=== PATIENT | female | born 1990 | race Caucasian/White ===

== ENCOUNTER 2017-12-13 08:00 | Outpatient (CLI) | payer BC | END 2017-12-13 08:01 | disposition home or self-care (01) | LOC: LAB.R 08:00 | PROVIDERS: ATTEND Registered Nurse | DX: Z01.419 Encounter for gynecological examination (general) (routine) without abnormal findings (principal) | CPT/HCPCS: 87491; 87591 ==

== ENCOUNTER 2018-09-08 19:37 | Emergency (ER) | payer SELFPAY ==
--- NOTE | 2018-09-08 23:37 | ED Physician Documentation ---
PD HPI HEADACHE - Stated complaint Stated Complaint: LOZANO/NAUSEA - Chief complaint Chief Complaint: Neuro - History obtained from History obtained from: Patient - History of Present Illness Timing - onset: How many days ago (2) Timing - duration: Days (2) Timing - details: Gradual onset Pain level now: 6 Worst headache ever?: No: Worst headache ever? Location: Left, Other (left temporal and bilateral occipital) Quality: Throbbing Associated symptoms: Nausea. No: Fever, Stiff neck, Vomiting, Eye pain, Vision changes Improved by: Nothing Worsened by: Other (position) Contributing factors: Recent illness (recovering from URI) Similar symptoms before: Has not had sx before Recently seen: Not recently seen Review of Systems Constitutional: reports: Reviewed and negative Eyes: reports: Reviewed and negative Nose: reports: Congestion Respiratory: reports: Cough GI: reports: Nausea. denies: Vomiting Neurologic: reports: Headache. denies: Generalized weakness, Focal weakness, Numbness PD PAST MEDICAL HISTORY - Past Medical History Past Medical History: Yes Cardiovascular: High cholesterol - Past Surgical History Past Surgical History: Yes HEENT: Tonsil/Adenoidectomy - Present Medications Home Medications: Ambulatory Orders Medication Instructions Recorded Confirmed Hydrocodone/Acetaminophen 1 - 2 each PO Q6H PRN #10 tablet 06/20/16 [Hydrocodon-Acetaminophen 5-325] Ibuprofen [Motrin] 800 mg PO Q8H PRN #20 tablet 06/20/16 Amox/Clav 875/125 [Augmentin] 1 each PO Q12H #14 tablet 09/09/18 Hydrocodone/Acetaminophen 1 - 2 each PO Q6H PRN #14 tablet 09/09/18 [Hydrocodon-Acetaminophen 5-325] - Allergies Allergies/Adverse Reactions: Allergies Allergy/AdvReac Type Severity Reaction Status Date / Time No Known Drug Allergies Allergy Verified 09/08/18 20:10 - Social History Does the pt smoke?: Yes Smoking Status: Current every day smoker Does the pt drink ETOH?: Yes Does the pt have substance abuse?: Yes - Immunizations Immunizations are current?: Yes - POLST Patient has POLST: No PD ED PE NORMAL - Vitals Vital signs reviewed: Yes - General General: Alert and oriented X 3, No acute distress, Well developed/nourished - HEENT HEENT: PERRL, EOMI, Moist mucous membranes - Neck Neck: Supple, no meningeal sign - Respiratory Respiratory: No respiratory distress, Clear bilaterally - Derm Derm: No rash - Neuro Neuro: Alert and oriented X 3, 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 2-12 intact, No motor deficit, No sensory deficit Results - Vitals Vitals: Oxygen O2 Source Room air - Rads (name of study) CT head Radiology: Prelim report reviewed, See rad report PD MEDICAL DECISION MAKING - ED course Complexity details: reviewed results, re-evaluated patient, considered differential, d/w patient Departure - Departure Disposition: 01 Home, Self Care Clinical Impression: Sinusitis chronic, sphenoidal Condition: Good Instructions: ED Headache Sinus, ED Sinusitis Abx Tx Prescriptions: Amox/Clav 875/125 [Augmentin] 1 each PO Q12H #14 tablet Hydrocodone/Acetaminophen [Hydrocodon-Acetaminophen 5-325] 1 - 2 each PO Q6H PRN #14 tablet PRN Reason: pain Forms: Activity restrictions Discharge Date/Time: 09/09/18 01:26
[2018-09-09] MEDS ORDERED: HYDROcod/ACETAM 5/325 MG TABLET PO STA (00:13)
--- NOTE | 2018-09-09 00:46 | CT Report ---
Reason: LOZANO Procedure Date: 09/09/2018 Accession Number: [id number] / [id number] Procedure: CT - Head W/O CPT Code: FULL RESULT: EXAM: CT HEAD EXAM DATE: 09/09/2018 12:31 AM. CLINICAL HISTORY: LOZANO. COMPARISON: None. TECHNIQUE: Multiaxial CT images were obtained from the foramen magnum to the vertex. Reformats: Sagittal and coronal. IV contrast: None. In accordance with CT protocol optimization, one or more of the following dose reduction techniques were utilized for this exam: automated exposure control, adjustment of mA and/or KV based on patient size, or use of iterative reconstructive technique. FINDINGS: Parenchyma: No intraparenchymal hemorrhage. No evidence of mass, midline shift, or CT findings of infarction. Jorge-white differentiation is distinct. Extraaxial Spaces: Normal for age. No subdural or epidural collections identified. Ventricles: Normal in size and position. Sinuses and Orbits: Extensive mucosal thickening is present in the left sphenoid sinus with suggestion of an air-fluid level. The orbits and mastoid sinuses are unremarkable. Bones: No evidence of fracture or calvarial defect. IMPRESSION: 1. No acute intracranial process. 2. Extensive mucosal thickening in the left sphenoid sinus with suggestion of an air-fluid level. Clinical correlation for acute sinusitis is recommended. RADIA
[2018-09-09] MEDS ORDERED: AMOX/CLAV 875 MG/125 MG TABLET PO STA (01:15)
[2018-09-09 01:27] VITALS: BP 125/75
== END 2018-09-09 01:26 | disposition home or self-care (01) ==
LOC: ED 19:37
DX: J32.3 Chronic sphenoidal sinusitis (principal); E78.00 Pure hypercholesterolemia, unspecified; F17.200 Nicotine dependence, unspecified, uncomplicated
CPT/HCPCS: 70450; 99283; A9270

== ENCOUNTER 2019-04-14 21:38 | Emergency (ER) | payer SELFPAY ==
--- NOTE | 2019-04-14 22:06 | ED Physician Documentation ---
History of Present Illness - Stated complaint Stated Complaint: VOMITING - Chief complaint Chief Complaint: Cardiac - Additonal information Additional information: This is a 28-year-old female who denies past medical history who presents with epigastric pain after dinner tonight. She ate a meal which was zucchini with cheese and turkey, and then she immediately developed some pain in her epigastrium/RUQ radiating up to her chest. She had nausea, multiple episodes of vomiting as well. She denies any lower abdominal pain, no dysuria, no fever. She has a history of high cholesterol, she also said she has a family history of coronary artery disease. She denies shortness of breath. She denies any history of abdominal surgeries. Review of Systems Constitutional: denies: Fever Cardiac: reports: Chest pain / pressure GI: reports: Abdominal Pain, Nausea, Vomiting : denies: Dysuria Neurologic: denies: Generalized weakness PD PAST MEDICAL HISTORY - Past Medical History Cardiovascular: High cholesterol - Past Surgical History Past Surgical History: Yes HEENT: Tonsil/Adenoidectomy - Present Medications Home Medications: Ambulatory Orders Medication Instructions Recorded Confirmed Hydrocodone/Acetaminophen 1 - 2 each PO Q6H PRN #10 tablet 06/20/16 [Hydrocodon-Acetaminophen 5-325] Ibuprofen [Motrin] 800 mg PO Q8H PRN #20 tablet 06/20/16 Amox/Clav 875/125 [Augmentin] 1 each PO Q12H #14 tablet 09/09/18 Hydrocodone/Acetaminophen 1 - 2 each PO Q6H PRN #14 tablet 09/09/18 [Hydrocodon-Acetaminophen 5-325] Ondansetron Odt [Zofran] 4 mg TL Q6H PRN #10 tablet 04/15/19 - Allergies Allergies/Adverse Reactions: Allergies Allergy/AdvReac Type Severity Reaction Status Date / Time No Known Drug Allergies Allergy Verified 04/14/19 21:48 - Social History Does the pt smoke?: Yes Smoking Status: Current every day smoker Does the pt drink ETOH?: Yes Does the pt have substance abuse?: Yes - Immunizations Immunizations are current?: Yes - POLST Patient has POLST: No PD ED PE NORMAL - Vitals Vital signs reviewed: Yes - General General: Alert and oriented X 3, No acute distress - HEENT HEENT: PERRL - Neck Neck: Supple, no meningeal sign - Cardiac Cardiac: RRR, No murmur - Respiratory Respiratory: Clear bilaterally - Abdomen Abdomen: Soft, Other (Tender to palpation in the epigastrium and RUQ. Otherwise non-tender.) - Derm Derm: Warm and dry - Extremities Extremities: No deformity - Neuro Neuro: Alert and oriented X 3 - Psych Psych: Normal mood, Normal affect Results - Vitals Vitals: Vital Signs - 24 hr 04/14/19 04/14/19 04/14/19 21:46 21:50 23:13 Temperature 36.1 C L 36.5 C Heart Rate 80 67 49 L Respiratory 22 16 14 Rate Blood Pressure 124/79 137/87 H 116/72 O2 Saturation 100 100 99 Oxygen O2 Source Room air - EKG (time done) 21:53 Other comments: Other comments (Rate 56, rhythm sinus bradycardia, No ST segment changes. No abnormal T wave inversions. Intervals within normal limits.) - Labs Labs: Laboratory Tests 04/14/19 04/14/19 04/14/19 22:24 22:24 22:24 WBC 9.0 RBC 4.50 Hgb 13.5 Hct 40.0 MCV 88.9 MCH 30.0 MCHC 33.8 RDW 13.2 Plt Count 249 MPV 10.5 Neut # (Auto) 4.1 Lymph # (Auto) 3.9 H Whitman # (Auto) 0.7 Eos # (Auto) 0.3 Baso # (Auto) 0.1 Absolute Nucleated RBC 0.00 Nucleated RBC % 0.0 Sodium 138 Potassium 3.2 L Chloride 103 Carbon Dioxide 23 Anion Gap 12.0 BUN 17 Creatinine 0.9 Estimated GFR (MDRD) 75 L Glucose 118 H Calcium 9.7 Total Bilirubin 0.8 AST 37 ALT 24 Alkaline Phosphatase 47 Total Protein 7.6 Albumin 4.7 Globulin 2.9 Albumin/Globulin Ratio 1.6 Lipase 37 Serum HCG, Qual NEGATIVE PD MEDICAL DECISION MAKING - ED course Complexity details: considered differential (Biliary colic, gastritis, gastroenteritis, cholangititis, cholecystitis, ACS) ED course: On initial exam patient's vital signs unremarkable, she has significant is in the right upper quadrant. We did perform an EKG, which showed no convincing signs of acute ischemia, and her symptoms and exam make biliary patholgy much more likely. She is low risk for ACS. Labs are drawn which show mild hypokalemia, otherwise unremarkable. Right upper quadrant ultrasound was performed which shows sludge and stones in the gallbladder, without signs of cholecystitis. She has no LFT elevations, and after a dose of morphine as well as Zofran her symptoms have completely resolved. She has benign abdominal exam with no right upper quadrant tenderness. She appears to have biliary colic, I discussed this diagnosis with her, and that she should follow-up with a general surgeon as soon as possible for discussion of cholecystectomy. Patient agreed and was discharged home with zofran. Return precautions discussed. Departure - Departure Disposition: Home, Self Care Clinical Impression: Biliary colic Condition: Good Instructions: ED Gallstone W Biliary Colic Follow-Up: Arcenio Lowery MD [Provider Admit Priv/Credential] - Within 1 week (Please ma ke an appointment for discussion of cholecystectomy.) Prescriptions: Ondansetron Odt [Zofran] 4 mg TL Q6H PRN #10 tablet PRN Reason: Nausea / Vomiting Comments: You appear to have had biliary colic - pain caused by stones in the gallbladder. You do not have signs of inflammation, but you should follow up with a general surgeon to discuss removal of your gallbladder. Return to the emergency department if you are having recurrent pain that is severe, or persistent vomiting.
[2019-04-14] MEDS ORDERED: SODIUM CHLORIDE 0.9% 1,000 ML IV ONE (22:18)
[2019-04-14] MEDS ORDERED: ONDANSETRON 4 MG/2 ML VIAL IVP STA (22:18)
[2019-04-14] MEDS ORDERED: MORPHINE 2 MG/ML CARPUJECT IVP STA (22:18)
[2019-04-14 22:30] LABS: BASOPHILS # (AUTO) 0.1 10^3/uL (0.0-0.1); BASOPHILS % (AUTO) 0.6 %; EOSINOPHILS # (AUTO) 0.3 10^3/uL (0.0-0.7); EOSINOPHILS % (AUTO) 3.4 %; HGB - HEMOGLOBIN 13.5 g/dL (12.0-16.0); LYMPHOCYTES # (AUTO) 3.9 10^3/uL (1.5-3.5); LYMPHOCYTES % (AUTO) 43.4 %; MEAN CORPUSCULAR HGB CONC 33.8 g/dL (32.0-36.0); MEAN CORPUSCULAR VOLUME 88.9 fL (81.0-99.0); MEAN PLATELET VOLUME 10.5 fL (7.9-10.8); MONOCYTES # (AUTO) 0.7 10^3/uL (0.0-1.0); MONOCYTES % (AUTO) 7.3 %; NEUTROPHILS # (AUTO) 4.1 10^3/uL (1.5-6.6); NEUTROPHILS % (AUTO) 45.1 %; PLT - PLATELET COUNT 249 10^3/uL (130-450); RED CELL DISTRIBUTION WIDTH 13.2 % (12.0-15.0)
[2019-04-14 22:52] LABS: ALBUMIN 4.7 g/dL (3.2-5.5); ALBUMIN/GLOBULIN RATIO 1.6 (1.0-2.2); BILIRUBIN,TOTAL 0.8 mg/dL (0.2-1.0); CALCIUM 9.7 mg/dL (8.5-10.3); CREATININE 0.9 mg/dL (0.4-1.0); TOTAL PROTEIN 7.6 g/dL (6.7-8.2)
[2019-04-14 22:59] LABS: HCG,QUALITATIVE BLOOD NEGATIVE
--- NOTE | 2019-04-15 00:42 | Ultrasound Report ---
Reason: RUQ pain, eval for biliary pathology Procedure Date: 04/15/2019 Accession Number: [id number] / [id number] Procedure: US - Abdomen Limited CPT Code: FULL RESULT: EXAM: ABDOMEN ULTRASOUND LIMITED, RUQ EXAM DATE: 04/15/2019 12:25 AM. CLINICAL HISTORY: RUQ pain, eval for biliary pathology. COMPARISON: ABD/PEL 03/30/2009 1:19 PM. TECHNIQUE: Real-time scanning was performed with static images obtained. FINDINGS: Liver: Mildly echogenic and heterogeneous. 17.4 cm. Main portal vein flow: Hepatopetal. Gallbladder: Sludge and possible tiny stones layering in the gallbladder. Wall thickness is normal at 2.7 mm. No focal tenderness over the gallbladder. The patient had received pain medication. Biliary System: CBD measures 4.5 mm. No intrahepatic or extrahepatic ductal dilatation. Other: Right kidney measures 11.0 cm. Slightly prominent renal pelvis without parish hydronephrosis. Visualized portions of the pancreas appear normal. Inferior vena cava is patent where seen. IMPRESSION: 1. Sludge and possible tiny stones layering in the gallbladder. No definite cholecystitis. 2. No biliary dilatation seen. 3. Possible fatty liver. RADIA
[2019-04-15 01:08] VITALS: BP 103/59
== END 2019-04-15 01:26 | disposition home or self-care (01) ==
LOC: ED 21:38
DX: K80.20 Calculus of gallbladder without cholecystitis without obstruction (principal); E87.6 Hypokalemia; R00.1 Bradycardia, unspecified; E78.00 Pure hypercholesterolemia, unspecified; Z82.49 Family history of ischemic heart disease and other diseases of the circulatory system; F17.200 Nicotine dependence, unspecified, uncomplicated
CPT/HCPCS: 36415; 76705; 80053; 83690; 84703; 85025; 93005; 96361; 96374; 99284

== ENCOUNTER 2019-07-10 08:03 | Outpatient (CLI) | payer SELFPAY ==
--- NOTE | 2019-07-10 09:19 | Ultrasound Report ---
Reason: LT BREAST LUMP, BREAST PAIN Procedure Date: 07/10/2019 Accession Number: [id number] / [id number] Procedure: US - Breast Unilateral Limited CPT Code: Final Report FULL RESULT: EXAM: Breast Unilateral Limited DATE: 07/10/2019 9:11 AM CLINICAL HISTORY: LT BREAST LUMP, palpated 6 months ago stable personal for exam. Intermittent associated BREAST PAIN. TECHNIQUE: Real-time ultrasound performed at site of palpable lump per patient. COMPARISON: Baseline imaging. FINDINGS: Left breast: Targeted ultrasound at 2:00 6 cm from the nipple demonstrates an oval, circumscribed margin, parallel orientation, avascular, hypoechoic mass measuring 2.4 x 2.1 x 1.2 cm corresponding to palpable lump. IMPRESSION: Left breast: 2.4 cm oval mass with benign imaging features favoring fibroadenoma corresponding to palpable lump per patient, stable by self exam for 6 months. Probably benign. BI-RADS Category 3. 6 month surveillance ultrasound is recommended. Clinical follow-up is also recommended; patient was advised to return prior to recommended imaging interval for any increase in size or new symptoms/concerns.
== END 2019-07-10 08:04 | disposition home or self-care (01) ==
LOC: DI 08:03
PROVIDERS: ATTEND Nurse Practitioner Obstetrics & Gynecology
DX: N63.21 Unspecified lump in the left breast, upper outer quadrant (principal); N64.4 Mastodynia
CPT/HCPCS: 76642

== ENCOUNTER 2020-01-19 08:00 | Outpatient (CLI) | payer SELFPAY | END 2020-01-19 23:59 | disposition home or self-care (01) | LOC: COV 08:00 | PROVIDERS: ATTEND Family Medicine | DX: R19.7 Diarrhea, unspecified (principal); R11.0 Nausea; Z20.828 Contact with and (suspected) exposure to other viral communicable diseases | CPT/HCPCS: 81599 ==

== ENCOUNTER 2021-06-01 22:56 | Emergency (ER) | payer MEDICAID, OTHER ==
--- NOTE | 2021-06-01 23:37 | ED Physician Documentation ---
PD HPI ABD PAIN - Stated complaint Stated Complaint: ABD PX/VOMIT - Chief complaint Chief Complaint: Abd Pain - History obtained from History obtained from: Patient - History of Present Illness Timing - onset: How many hours ago (few hours ago, after eating hot wings, onset of upper abd/substernal burning pain, not improved with Pepto nor TUMs.) Timing - details: Abrupt onset, Still present (though lessening from as intense as it was at onset.) Quality: Indigestion, Other (burning pain) Location: Epigastric. No: RUQ, Suprapubic Radiation: Upper back. No: Chest, Right flank Improved by: No: Position, Meds (Pepto and TUMs) Worsened by: Eating, Palpation (upper abd). No: Breathing Associated symptoms: Nausea. No: Vomiting, Diarrhea, Dysuria Similar symptoms before: No diagnosis (had similar prior to and considerations were GERD or gallbladder colic. States had U/S that did not show stones.) Recently seen: Clinic (currently and seen care few weeks ago without problems.) Review of Systems Constitutional: denies: Fever, Chills Nose: denies: Rhinorrhea / runny nose, Congestion Throat: denies: Sore throat Respiratory: denies: Cough GI: reports: Abdominal Pain, Nausea. denies: Vomiting, Constipation, Diarrhea : reports: Now EGA (15 wks). denies: Dysuria, Discharge, Vaginal bleeding Neurologic: denies: Generalized weakness, Near syncope PD PAST MEDICAL HISTORY - Past Medical History Past Medical History: Yes Cardiovascular: High cholesterol Respiratory: None GI: GERD - Past Surgical History Past Surgical History: Yes HEENT: Tonsil/Adenoidectomy - Present Medications Home Medications: Ambulatory Orders Medication Instructions Recorded Confirmed Pnv No.95/Ferrous Fum/Folic AC 1 each PO 06/01/21 [ Tablet] Famotidine [Pepcid] 20 mg PO DAILY 30 Days #30 tablet 06/02/21 Ondansetron Odt [Zofran] 4 mg TL Q6H PRN #15 tablet 06/02/21 - Allergies Allergies/Adverse Reactions: Allergies Allergy/AdvReac Type Severity Reaction Status Date / Time No Known Drug Allergies Allergy Verified 04/14/19 21:48 - Social History Does the pt smoke?: No Smoking Status: Never smoker Does the pt drink ETOH?: Yes Does the pt have substance abuse?: Yes - Immunizations Immunizations are current?: Yes Immunizations: TDAP >10years/unknown - POLST Patient has POLST: No PD ED PE NORMAL - Vitals Vital signs reviewed: Yes - General General: Alert and oriented X 3, Well developed/nourished, Other (appears some discomfort upper abd.) - HEENT HEENT: Pharynx benign - Neck Neck: Supple, no meningeal sign, No adenopathy - Cardiac Cardiac: RRR, No murmur - Respiratory Respiratory: Clear bilaterally - Abdomen Abdomen: Normal bowel sounds, Soft, Non distended, No organomegaly, Other (gravid with uterus mid from pubis to umbilicus. nontender lower abd. She does have tender without guarding epigastric area. Not tender RUQ. normal liver size to palpation. ) - Female Female : Deferred, Other (bedside U/S showing IUP c/w dates, with active movement, normal appearing fluid, FHR approx 120.) - Back Back: No CVA TTP Results - Vitals Vitals: Vital Signs - 24 hr 06/01/21 06/01/21 06/02/21 23:03 23:24 01:01 Temperature 36.5 C Heart Rate 84 84 87 Respiratory 18 16 Rate Blood Pressure 138/85 H 112/66 94/76 O2 Saturation 100 99 98 Oxygen O2 Source Room air - Labs Labs: Laboratory Tests 06/02/21 06/02/21 00:43 00:43 WBC 13.9 H RBC 4.50 Hgb 13.7 Hct 41.5 MCV 92.2 MCH 30.4 MCHC 33.0 RDW 12.9 Plt Count 245 MPV 10.8 Neut # (Auto) 10.1 H Lymph # (Auto) 2.5 Nance # (Auto) 0.9 Eos # (Auto) 0.3 Baso # (Auto) 0.1 Absolute Nucleated RBC 0.00 Nucleated RBC % 0.0 Sodium 138 Potassium 3.5 Chloride 102 Carbon Dioxide 24 Anion Gap 12.0 BUN 9 Creatinine 0.6 Estimated GFR (MDRD) 118 Glucose 97 Calcium 9.6 Total Bilirubin 0.4 AST 29 ALT 25 Alkaline Phosphatase 36 L Total Protein 7.4 Albumin 4.0 Globulin 3.4 Albumin/Globulin Ratio 1.2 Lipase 39 PD MEDICAL DECISION MAKING - ED course Complexity details: considered differential (improved with PO meds. Seems likely GERD/esophageal spasm. Less likely gallbladder without having stones, but could be colic with sludge, given . Improved here. Can treat for GERD/gastritis. ), d/w patient Departure - Departure Disposition: 01 Home, Self Care Clinical Impression: Epigastric pain during , antepartum Qualifiers: Weeks of gestation: 15 weeks Qualified Code(s): Z3A.15 - 15 weeks gestation of Condition: Stable Record reviewed to determine appropriate education?: Yes Instructions: ED Gastritis, ED Epigastric Pain [facility] Follow-Up: CONTRERAS MCKENNA NP [Primary Care Provider] - Prescriptions: Famotidine [Pepcid] 20 mg PO DAILY 30 Days #30 tablet Ondansetron Odt [Zofran] 4 mg TL Q6H PRN #15 tablet PRN Reason: Nausea / Vomiting Comments: No signs of liver inflammation or pancreatitis based on your blood test. Consider possibility of gallbladder spasms, though the location of your pain would be more suggestive of reflux and gastritis (irritation of the stomach). This is relatively common in , and sounds like you had it before as well. I would suggest acid reducing medicine of famotidine twice daily for the next several days to week and then once daily for a few weeks. This is safe in . Add Ondansatron if needed for nausea. Add Tylenol every 4-6 hours if needed for pains. You could also use antacid such as Maalox or Mylanta. I would avoid Pepto-Bismol during as it is a salicylate (aspirin like). Some people will find stomach irritation increased with the vitamins, particularly the iron component. You could hold your vitamin for a week or 2 until you discuss it further with your ENVIRONMENTAL SAMPLER. I transmitted your scripts to [facility] pharmacy in [place]. Discharge Date/Time: 06/02/21 01:19
[2021-06-02] MEDS ORDERED: MAG HYDROX/AL HYDROX/SIMETH 30 ML UDC PO STA (00:04)
[2021-06-02] MEDS ORDERED: ONDANSETRON ODT 4 MG TABLET TL STA (00:04)
[2021-06-02] MEDS ORDERED: ACETAMINOPHEN 325 MG TABLET PO STA (00:04)
[2021-06-02] MEDS ORDERED: FAMOTIDINE 20 MG TABLET PO STA (00:04)
[2021-06-02 00:51] LABS: BASOPHILS # (AUTO) 0.1 10^3/uL (0.0-0.1); BASOPHILS % (AUTO) 0.4 %; EOSINOPHILS # (AUTO) 0.3 10^3/uL (0.0-0.7); EOSINOPHILS % (AUTO) 2.3 %; HCT - HEMATOCRIT 41.5 % (37.0-47.0); HGB - HEMOGLOBIN 13.7 g/dL (12.0-16.0); LYMPHOCYTES # (AUTO) 2.5 10^3/uL (1.5-3.5); LYMPHOCYTES % (AUTO) 17.9 %; MEAN CORPUSCULAR HEMOGLOBIN 30.4 pg (27.0-31.0); MEAN CORPUSCULAR VOLUME 92.2 fL (81.0-99.0); MEAN PLATELET VOLUME 10.8 fL (7.9-10.8); MONOCYTES # (AUTO) 0.9 10^3/uL (0.0-1.0); MONOCYTES % (AUTO) 6.3 %; NEUTROPHILS # (AUTO) 10.1 10^3/uL (1.5-6.6); NEUTROPHILS % (AUTO) 72.6 %; PLT - PLATELET COUNT 245 10^3/uL (130-450); RED CELL DISTRIBUTION WIDTH 12.9 % (12.0-15.0); WHITE BLOOD COUNT 13.9 x10^3/uL (4.8-10.8)
[2021-06-02 01:01] LABS: ALBUMIN/GLOBULIN RATIO 1.2 (1.0-2.2); BILIRUBIN,TOTAL 0.4 mg/dL (0.2-1.0); CALCIUM 9.6 mg/dL (8.5-10.3); CREATININE 0.6 mg/dL (0.4-1.0); POTASSIUM 3.5 mmol/L (3.5-5.0); TOTAL PROTEIN 7.4 g/dL (6.7-8.2)
[2021-06-02 01:03] VITALS: BP 94/76
== END 2021-06-02 01:19 | disposition home or self-care (01) ==
LOC: ED 22:56
DX: O99.891 Other specified diseases and conditions complicating pregnancy (principal); R10.13 Epigastric pain; R11.0 Nausea; Z3A.15 15 weeks gestation of pregnancy
CPT/HCPCS: 36415; 80053; 83690; 85025; 99282; 99283; A9270; Q0162

== ENCOUNTER 2023-12-13 08:17 | Outpatient (CLI) | payer OTHER ==
--- NOTE | 2023-12-13 08:55 | Sleep Patient Instructions ---
Sleep Center Visit Summary - Patient Visit Information Reason for Visit: Initial consult for evaluation of sleep disordered breathing and other sleep issues. - Patient Instructions Instructions Attached: Sleep Study Home Monitor Additional Instructions: You will be completing a sleep study, either an in-lab polysomnography (PSG) or home sleep study (HST). You will follow-up in the sleep care office after the sleep study is completed to hear the results and talk about therapy, if needed. You will be called by our office staff to schedule this appointment, but you may contact us with any questions. - Clinic Information Contact: [facility] [address] [place] [address] [email or web address] T: [phone]
--- NOTE | 2023-12-13 09:00 | SLEEP CARE CONSULTATION ---
Information from patient questionnaire entered by Roman Quinonez. I have reviewed and concur with the information entered by Roman Quinonez. This document represents the service I personally performed and the decisions made by me, Zulema Adkins ARNP. History of Present Illness Service Date and Time: 12/13/2023816 Reason for Visit: New patient Chief Complaint: reports: Unrefreshed sleep, Snoring, Observed pauses in breathing, Fatigue, Frequent awakenings at night Date of Onset: Many years Usual bedtime: 8 - 9 Time it takes to fall asleep: An hour or so Snores at night: Yes Observed to quit breathing while asleep: Yes Sleeps alone due to snoring: No (Annoys him) Number of times waking at night: 2 - 4 Reasons for waking at night: reports: Choking, Snoring, Gasping for air Toss, Turn, or Twitch while sleeping: Yes Recalls having dreams: Yes (Sometimes) Usually gets out of bed at: 5:45 AM; weekends Feels refreshed in the morning: No Morning headache: No Sleepy or fatigued during the day: Yes (when lunch "hits") Ever fallen asleep while driving: No Takes day naps: Yes (Sometimes; on weekends) Dreams during day naps: No Prior sleep studies: No Additional HPI information: I had the pleasure of seeing JENNIFER PAYAN today regarding the possibility of her having a sleep disorder. Her current complaints are fatigue, frequent night awakenings, observed pauses in breathing, snoring and unrefreshed sleep. She says that she used to experience waking up and feeling like she cannot move when younger. She snores loudly, according to her . She has times she is "jolting" awake a couple times a month but is not sure why this is happening. She has woke up coughing, feeling like she is choking. She does not wake up feeling rested and is tired through the day, especially in the afternoons. She had a tonsillectomy as a child due to frequent strep throat. Her father has sleep apnea and is on a PAP device. 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 Patient is single and lives in [place]. Have you smoked in the past 12 months: No Alcohol use: Yes Alcohol amount and frequency: 1 - 2 drinks a month Caffeine use: Yes Caffeine amount and frequency: 1 - 2 daily Family History Family history of sleep disordered breathing: Yes Family Hx Sleep Apnea: Mother: Snoring, Father: Snoring, Sleep apnea - Treated Allergies and Home Medications Known drug allergies: No Drug allergies reviewed: Yes Home medication list reviewed: Yes (as listed) Allergy and home medication list: Allergies No Known Drug Allergies Allergy (Verified 12/11/23 11:30) Home Medications Medication Instructions Recorded Confirmed Last Taken Type Levothyroxine 0.25 mcg ORAL DAILY 12/13/23 12/13/23 Unknown History Review of Systems Cardiovascular: denies: high blood pressure Gastrointestinal: reports: heartburn, difficulty swallowing Neurological: reports: headaches Psychiatric: denies: anxiety, depression Ear/Nose/Throat: reports: sinus problems, dry mouth/throat, tonsillectomy, wisdom teeth removed Endocrine: reports: thyroid disease, sluggishness (/tired) Musculoskeletal: reports: back pain Immunologic: reports: rash Physical Exam Vital signs obtained and entered by: Zulema Logan NP Blood Pressure: 116/71 Cuff size: regular (right arm) Heart Rate: 65 O2 Saturation: 99 Height: 5 ft 8 in Weight: 217 lb 9.6 oz Body Mass Index: 33.0 BMI Classification: Obese Neck circumference: 14.75 (inches) Mouth and throat: narrow oropharynx Soft palate: long Hard palate: normal Uvula: normal Uvula visualization: 25% Mallampati Class III Tongue: enlarged in size with teeth gutiérrez on lateral edges Tonsils: absent bilaterally Neck: normal w/o lymphadenopathy or thyromegaly Heart: regular rate and rhythm Lungs: clear bilaterally Impression and Plan 1. Suspected Obstructive Sleep Apnea-Hypopnea Syndrome, as suggested by a history of loud and irregular snoring, observed cessation of breath while asleep, gasping or choking in sleep, frequent awakening during the night, unrefreshed sleep, cognitive impairment, and excessive daytime sleepiness. Narrow oropharynx and obesity are common predisposing factors for obstructive sleep apnea-hypopnea syndrome. I recommend proceeding to polysomnography to confirm the diagnosis and to assess severity. If the patient has significant sleep disordered breathing, a manual CPAP titration study will also be performed to find the optimal treatment pressure. I informed the patient of what the sleep studies involve and after some discussion, obtained agreement to proceed. The pathophysiology of obstructive sleep apnea-hypopnea syndrome was discussed with the patient and health risks of cardiovascular and cerebrovascular disease if not treated. Risks of drowsy driving discussed in detail and patient advised to avoid long distance driving and to machine assembler for puller over at the first sign of drowsiness. Patient agreed to plan. * Schedule polysomnography * Avoid long distance driving or driving when feeling sleepy. * Avoid alcohol, sedative and muscle relaxant around bedtime. * Attempt to lose weight. * Review instructions provided by trained office staff on how to prepare for the sleep study. * Return for follow-up after sleep study completed. Counseling Topics: Weight loss health impact Plan: PSG/HST Visit Type: In Office Time Spent with Patient (minutes): 30 Provider Statement: I spent 100% of the Face to Face Visit with the patient with greater than 50% spent counseling the patient and coordination of care.
[2023-12-13 09:07] VITALS: BP 116/71; O2SAT 99
== END 2023-12-13 08:18 | disposition home or self-care (01) ==
LOC: SC 08:17
PROVIDERS: ATTEND Nurse Practitioner Family
DX: G47.10 Hypersomnia, unspecified (principal); R41.89 Other symptoms and signs involving cognitive functions and awareness
CPT/HCPCS: 99203; 99212

== ENCOUNTER 2024-01-24 08:27 | Outpatient (CLI) | payer OTHER | END 2024-01-24 08:28 | disposition home or self-care (01) | LOC: SC 08:27 | PROVIDERS: ATTEND Nurse Practitioner Family | DX: G47.8 Other sleep disorders (principal); R53.83 Other fatigue; E66.9 Obesity, unspecified; R06.83 Snoring; R06.81 Apnea, not elsewhere classified | CPT/HCPCS: 95806 ==

== ENCOUNTER 2024-02-14 09:40 | Outpatient (CLI) | payer OTHER ==
--- NOTE | 2024-02-14 09:53 | Sleep Patient Instructions ---
Sleep Center Visit Summary - Patient Visit Information Reason for Visit: Sleep study follow-up - Patient Instructions Instructions Attached: Snoring Tips Prevent Additional Instructions: Your sleep study today was negative for significant sleep disordered breathing. You were found to have episodes of snoring. There are different ways to control snoring including weight loss, oral devices made by a dentist or surgical options through ENT specialist. You should not use oral devices that do not fit properly because they can affect your bite. You should also check insurance coverage of oral devices for snoring because they may not be cover well. You may obtain a referral to an ENT specialist through your primary provider. Follow-up as needed. - Clinic Information Contact: [facility] [address] [place] [address] [email or web address] T: [phone]
--- NOTE | 2024-02-14 09:55 | SLEEP CARE CONSULTATION ---
Information from patient questionnaire entered by Ary Anthony. I have reviewed and concur with the information entered by Ary Anthony. This document represents the service I personally performed and the decisions made by , Zulema Adkins ARNP. History of Present Illness Service Date and Time: 02/14/2024 0940 Initial [place] Sleepiness Scale score: 15 (in 2023) Current [place] Sleepiness Scale score: 16 (02/14/24) Additional HPI information: JENNIFER CALIXTO returns for follow up and results of the recently performed home sleep study. The patient was informed of the following findings: No significant sleep disordered breathing with an average AHI of 0.7 and pushpa oxygen saturation of 91%. I explained the pathophysiology behind obstructive sleep apnea. Patient does not have sleep apnea and was advised how weight gain could increase the risk of developing sleep apnea in the future. I strongly encouraged the patient to lose weight. Patient has moderate snoring. Snoring can be reduced by weight loss. Weight loss is best achieved with diet consult. Patient instructed to contact PCP for referral. Snoring can also be treated with an oral appliance from a dentist. Advised to check insurance coverage. In addition, an ENT evaluation can be do to see if other treatment is indicated. Patient counseled not drink alcohol less than 4 hours before bedtime as it can increase snoring and apnea. Patient was cautioned about risks of drowsy driving until sleepiness symptoms resolve. Patient denies drowsy driving. Sleep Study - Results Type of Sleep Study: Home sleep study (COMPLETED 01/24/24) Prior sleep studies: No Polysomnography/Home Sleep Study results: Physician Impression: The quality of the study is good. The length of the study is adequate (> 240 minutes). Please also see the tabulated and graphic data. 1. No significant sleep disordered breathing, with an AHI of 0.7/hr and pushpa SaO2 of 91%. During the study, the patient had 5 apneas (5 obstructive, 0 central, 0 mixed) and 2 hypopneas. The longest episode lasted 39.0 seconds. The patient had limited supine sleep (supine AHI was 0.0 and non-supine, 0.80). Allergies and Home Medications Known drug allergies: No Drug allergies reviewed: Yes Home medication list reviewed: Yes (no changes) Allergy and home medication list: Allergies No Known Drug Allergies Allergy (Verified 02/12/24 10:30) Review of Systems Review of systems same as previous: Yes (NO CHANGE) Physical Exam Vital signs obtained and entered by: ARY Gao MA Blood Pressure: 128/74 (RIGHT ARM) Cuff size: long Heart Rate: 80 O2 Saturation: 98 Height: 5 ft 8 in Weight: 223 lb 9.6 oz Body Mass Index: 34.0 BMI Classification: Obese Impression and Plan 1. Snoring but no significant sleep disordered breathing. Patient advised that often weight loss will reduce snoring as well as apnea risk. An oral appliance can also be used for snoring. This would require a dental consultation. Patient cautioned not to use other online appliances as can cause bite issues. Patient is advised to check if insurance will cover. An ENT consult can also be helpful to determine if any other treatment is an option. 2. Obesity, unspecified. Currently patients BMI is 34. Obesity increases the risk of apnea, CPAP pressure requirements and overall health risks especially cardiovascular and diabetes. Thus patient is advised to lose weight. * Attempt to lose weight * Avoid alcohol consumption near bedtime * Return as needed for follow up. Counseling Topics: Weight loss health impact Follow up with Sleep Care in: as needed Visit Type: In Office Time Spent with Patient (minutes): 11 Provider Statement: I spent 100% of the Face to Face Visit with the patient with greater than 50% spent counseling the patient and coordination of care.
[2024-02-14 10:01] VITALS: BP 128/74; O2SAT 98
== END 2024-02-14 09:41 | disposition home or self-care (01) ==
LOC: SC 09:40
PROVIDERS: ATTEND Nurse Practitioner Family
DX: R06.83 Snoring (principal); E66.9 Obesity, unspecified; Z68.34 Body mass index [BMI] 34.0-34.9, adult
CPT/HCPCS: 99212